=== PATIENT | female | born 1980 | race Caucasian/White ===

== ENCOUNTER 2018-02-04 12:20 | Emergency (ER) | payer OTHER ==
[2018-02-04 12:23] VITALS: BP 138/91
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
--- NOTE | 2018-02-04 13:07 | RADIOLOGY IMAGING REPORT ---
FACILITY: [facility] PATIENT NAME: Kristy Gilbert : 1980 MR: [id number] V: [id number] EXAM DATE: ORDERING PHYSICIAN: ROSIBEL BELLE TECHNOLOGIST: Location: [facility] Patient: Kristy Gilbert : 1980 Visit/Account:[id number] Date of Sevice: 02/04/2018 HAND COMPLETE LEFT HISTORY: Trauma ADDITIONAL HISTORY: None. COMPARISON: None. FINDINGS: 3 views were obtained of the left hand. Alignment is anatomic. Joint spaces are well-maintained. Phal anges and metacarpals are intact. There appears to be a fracture of the triquetrum which is nondispla yolanda. There is however minimal soft tissue swelling present. No other fracture is definitively identif ied. IMPRESSION: 1. No fracture identified of the phalanges or metacarpals. 2. Nondisplaced triquetral fracture. Report Dictated By: Scarlet Rosales MD at 02/04/2018 12:58 PM Report E-Signed By: Scarlet Rosales MD at 02/04/2018 1:03 PM WSN:[id number]
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
[2018-02-04] MEDS ORDERED: LOR5/325 PO (13:59)
== END 2018-02-04 14:04 | disposition home or self-care (01) ==
LOC: ER 12:36
DX: S62.115A Nondisplaced fracture of triquetrum [cuneiform] bone, left wrist, initial encounter for closed fracture (principal); V86.92XA Unspecified occupant of snowmobile injured in nontraffic accident, initial encounter
CPT/HCPCS: 99283